=== PATIENT | male | born 1955 | race Caucasian/White ===

== ENCOUNTER 2016-12-25 06:19 | Observation (INO) | payer MEDICARE ==
[~2016-12-25 06:19] MED LIST: Buffered Lidocaine 1% SYRIN* 3 ML/SYR SYRINGE INTRADERM ONE
[2016-12-25] MEDS ORDERED: ceFAZolin 2 GM PREMIX(*) 2 GM/50 ML BAG IVPB ONE (06:57)
[2016-12-25] MEDS ORDERED: Bacitracin IV* 50,000 UNITS INJ ONE (07:00)
[2016-12-25] MEDS ORDERED: Thrombin 5,000 UNITS* 1 APPLIC KIT - topical use - TOPICAL ONE (07:00)
[2016-12-25] MEDS ORDERED: Lidocaine 1% MPF wEPI 200,000* 30 ML SDV ONE (07:02)
[2016-12-25] MEDS ORDERED: fentaNYL* 50 MCG/ML 2 ML VIAL (100 MCG VIAL) ONE ×3 (07:25→10:17)
[2016-12-25] MEDS ORDERED: Midazolam* 1 MG/ML 2 ML VIAL (2 MG) ONE ×2 (07:26→07:57)
[2016-12-25] MEDS ORDERED: Rocuronium* 10 MG/ML VIAL ONE (07:58)
[2016-12-25] MEDS ORDERED: Lidocaine 2% PF* 5 ML VIAL ONE (08:16)
[2016-12-25] MEDS ORDERED: Succinylcholine* 20 MG/ML 10 ML VIAL ONE (08:16)
[2016-12-25] MEDS ORDERED: Ondansetron INJ* 2 MG/ML VIAL ONE (08:16)
[2016-12-25] MEDS ORDERED: Dexamethasone IV* 4 MG/ML 1 ML (4 MG) ONE (08:16)
[2016-12-25] MEDS ORDERED: Propofol* 10 MG/ML 20 ML BTL IV PUSH ONE (08:16)
[2016-12-25] MEDS ORDERED: Famotidine IV* 10 MG/ML 2 ML (20 mg) ONE (08:16)
[2016-12-25] MEDS ORDERED: PROCHLORPERAZINE INJ 5 MG/ML 2 ML VIAL IV PRN (08:18)
[2016-12-25] MEDS ORDERED: DiMENhydriNATE IV* 50 MG/ML VIAL IV PUSH PRN (08:18)
[2016-12-25] MEDS ORDERED: Levalbuterol 0.63MG/3ML NEB INH PRN (08:18)
[2016-12-25] MEDS ORDERED: Acetaminophen TAB* 325 MG PO PRN ×2 (08:18→09:23)
[2016-12-25] MEDS ORDERED: Ondansetron INJ* 2 MG/ML VIAL IV PRN ×2 (08:18→09:23)
[2016-12-25] MEDS ORDERED: EPHEDrine (Pressors)* 50 MG/ML VIAL ONE (08:37)
--- NOTE | 2016-12-25 08:46 | RAD ---
Indication: L4-L5 decompressive laminectomy. Comparison: October 18, 2016 MRI. Technique: Portable prone lateral lumbar sacral spine 0925 hours Report: Tissue retractor centered at the L4-L5 facet level. Anterior margin of the metallic instrument at level of the inferior articular facet of L4. IMPRESSION: Procedural control film.
[2016-12-25] MEDS ORDERED: Calcium Carbonate CHEW TAB* 500 MG (TUMS) PO PRN (09:25)
[2016-12-25] MEDS: fentaNYL* 50 MCG/ML 2 ML VIAL (100 MCG VIAL) IV PRN ×3 (09:56→10:18)
[2016-12-25] MEDS ORDERED: Nicotine PATCH 21 MG/24 HR* PATCH TRANSDERM SCH (10:00)
[2016-12-25] MEDS ORDERED: HYDROcodone/ACETAMIN 5-325 MG* 1 TAB ONE (10:10)
[2016-12-25] MEDS: HYDROcodone/ACETAMIN 5-325 MG* 1 TAB PO PRN ×2 (10:11→17:57)
[2016-12-25] MEDS ORDERED: Neostigmine Methylsulfate* 2 MG/2 ML SYRINGE ONE (13:43)
[2016-12-26] MEDS: HYDROcodone/ACETAMIN 5-325 MG* 1 TAB PO PRN ×2 (02:05→10:34)
[2016-12-26] MEDS ORDERED: Nicotine Patch Removal NOTE FOLLOW UP SCH (06:00)
[2016-12-26] MEDS ORDERED: Levothyroxine TAB* 125 MCG TAB PO SCH (06:00)
--- NOTE | 2016-12-26 08:04 | PN ---
Progress Note - Progress Note SOAP: Subjective: [This is a 61 year old male s/p decompressive lumbar laminectomy L4-5 on the left, POD #1. He is feeling well although complains of pain at the incision. He is ambulating with assistance of a walker as he does at baseline. He is eating and drinking without difficulty. No nausea. No headache. Pre-op symptoms are improving. ] Objective: [ Vital Signs: Temp Pulse Resp BP Pulse Ox 98.0 F 62 16 93/50 97 12/26/16 04:04 12/26/16 04:04 12/26/16 04:05 12/26/16 04:04 12/26/16 04:04 General: Alert and oriented. No distress. Neuro: Motor and sensory intact. Incision: Intact with ti. No infection or swelling. CAROL removed today. CAROL output 12/25/16 12/25/16 12/25/16 10:45 14:00 18:28 Output, CAROL #1 60 75 40 12/25/16 12/26/16 12/26/16 22:16 02:00 05:26 Output, CAROL #1 20 10 5 ] Assessment: [Satisfactory post-op.] Plan: [1. Discharge home today. 2. Discharge instructions were discussed with the patient. ]
[2016-12-26 08:06] VITALS: BP 111/69
--- NOTE | 2016-12-28 05:03 | OP ---
DATE OF OPERATION: 12/25/16 - ROOM #333 DATE OF : 51. SURGEON: Jagdish Dsouza MD. SCHOOL ADMINISTRATOR: SWETA Hahn. ANESTHESIOLOGIST: Dr. Carmichael ANESTHESIA: General. PRE-OP DIAGNOSIS: Lumbar spinal stenosis L4-5, lumbar synovial cyst L4-5 in the left. POST-OP DIAGNOSIS: Lumbar spinal stenosis L4-5, lumbar synovial cyst L4-5 in the left. OPERATIVE PROCEDURE: Decompressive lumbar laminectomy L4-5, excision of lumbar synovial cyst with microdissection, L4-5 on the left. DESCRIPTION OF PROCEDURE: After satisfactory general anesthesia was obtained, the patient was placed on the operating table on the prone position with the chest supported on the Jordan frame and the back slightly flexed. The lumbar region was then clipped, prepped and draped in sterile manner for lumbar laminectomy and a skin incision outlined from L4-L5. This incision was infiltrated with 1% Xylocaine with epinephrine after which it was turned down sharply to the level of the lumbar fascia. The fascia was divided along the spinous processes of L4 and L5 and the paraspinal musculature was stripped away from these posterior elements using the periosteal elevator and monopolar cautery. An intraoperative x-ray was obtained verifying proper interspace and localization after which a partial decompression was carried out by removing the spinous process of the L4 and the superior aspect of the spinous process of L5 with the Leksell rongeur. Utilizing a Midas Patric drill, the remaining portion of the base of the spinous process of L4 and the medial aspect of the facet complex was stand out and removed with a Kerrison. This was carried superiorly until the attachment of ligamentum flavum was taken down. The generous decompression was initially carried out on the right side until the right L5 nerve root was noted to be free in its course. On the left side, there was noted to be prominent synovial cyst formation extending the entire length of the exposure. At this point of the procedure, the operating microscope was brought into the field and the remainder of the procedure done under microscopic visualization. Utilizing microdissection, a plane was developed between what was obvious synovial cyst tissue and the dura. At several points this was quite adherent. Ultimately, this plane was developed and the abnormal synovial cyst tissue removed. A specimen of this tissue was sent for permanent pathology. The cyst extended the entire length of the exposure and required a small portion of the superior aspect of the L5 to be removed on the left side to enable generous exposure of the left L5 nerve root. At the conclusion of the decompression, the dura was free of compromise at this level and both L5 nerve roots were noted to be free in their course. After assuring adequate hemostasis, the wound was thoroughly irrigated after which a piece of Gelfoam was placed over the laminectomy defect. A drain was placed in the epidural space and tunneled toward the left side. The fascia was reapproximated with 0-Vicryl sutures, the subcutaneous tissue was closed with 3- 0 Vicryl suture, and the skin closed with skin clips. The estimated blood loss was less than 50 cc and the final sponge, padding, and needle counts were correct. The patient was taken to the recovery room, extubated and in stable condition. [id number]/[facility] #: [id number] LC
== END 2016-12-26 10:50 | disposition home or self-care (01) ==
LOC: OR 06:19 → SSU 11:10
PROVIDERS: ADMIT Neurological Surgery; ATTEND Neurological Surgery
PROC: 01NB0ZZ Release Lumbar Nerve, Open Approach (ICD-10-PCS; 2016-12-25)
PROC: 0SB20ZZ Excision of Lumbar Vertebral Disc, Open Approach (ICD-10-PCS; principal; 2016-12-25 07:45)
DX: M48.06 Spinal stenosis, lumbar region (principal); M71.38 Other bursal cyst, other site; F17.200 Nicotine dependence, unspecified, uncomplicated; Z79.899 Other long term (current) drug therapy
CPT/HCPCS: 72100; 88304; 96374; A9270-GY; G0378; J0330; J0690; J1100; J2001; J2250; J2405; J2704; J3010